=== PATIENT | female | born 1960 | race Caucasian/White ===

== ENCOUNTER → 2020-12-13 | Outpatient (CLI) | payer OTHER ==
[~2020-12-13] MED LIST: ALENDRONATE SOD70 MG PO; LEVOTHYROXINE25 MCG PO; MULTI VITAMIN1 EACH PO; PREDNISONE 10 M10 M1 PO; ROSUVASTATIN CA10 MG PO; TIZANIDINE HCL4 M2 PO
== END ==
LOC: LAB 11:38
PROVIDERS: ATTEND Orthopaedic Surgery
DX: Z01.812 Encounter for preprocedural laboratory examination (principal); Z20.822 Contact with and (suspected) exposure to COVID-19

== ENCOUNTER → 2020-12-13 | Day surgery (SDC) | payer OTHER ==
[~2020-12-13] VITALS: Ht 160 cm; Wt 86.2 kg
[2020-12-13 09:42] LABS: URINE BILIRUBIN NEGATIVE (Negative); URINE BLOOD NEGATIVE (Negative); URINE CLARITY CLEAR; URINE COLOR YELLOW; URINE GLUCOSE-RANDOM* NEGATIVE (Negative); URINE KETONES NEGATIVE (Negative); URINE NITRITE-REFLEX NEGATIVE (Negative); URINE PROTEIN (DIPSTICK) NEGATIVE (Negative); URINE SPECIFIC GRAVITY 1.015 (1.005-1.035); URINE UROBILINOGEN 0.2 E.U./dl (0.2-1.0)
[2020-12-13 09:44] LABS: URINE LEUKOCYTES-REFLEX 1+ (Negative)
[2020-12-13 09:51] LABS: HEMATOCRIT 44.4 % (37.0-47.0); HEMOGLOBIN 14.6 gm/dL (12.0-15.0); MCH 31.6 pg (26.0-34.0); MCHC 32.9 g/dL (28.0-37.0); MCV 96.3 fL (80.0-100.0); RBC 4.61 mil/uL (4.20-5.00); RDW 13.2 % (10.5-14.5); WBC 5.7 thou/uL (4.0-11.0)
[2020-12-13 09:56] LABS: ALBUMIN 3.5 g/dL (3.4-5.0); CALCIUM 8.7 mg/dL (8.5-10.1); CREATININE 0.9 mg/dL (0.6-1.0); POTASSIUM 4.4 mmol/L (3.5-5.1)
[2020-12-13 10:01] LABS: PROTIME 10.7 Seconds (9.3-11.4)
[2020-12-13 10:10] LABS: SQUAMOUS >10 Many /LPF (0-3)
[2020-12-13 10:11] LABS: BACTERIA-REFLEX 1-9 Few /HPF (None Seen); CASTS None Seen /LPF (None Seen); CRYSTALS None Seen /LPF (None Seen); MUCUS 0-3 Light strn/LPF (None Seen); URINE RBC 0-2 Rare /HPF (0-2)
[2020-12-19 07:11] VITALS: BP 135/72
== END | disposition home or self-care (01) ==
LOC: PAC 06:09 → OR 12-19 06:09 → TBA 12-19 06:10 → OR 12-19 06:10 → EDSTATUS 12-19 08:28 → OR 12-19 09:07
PROVIDERS: ATTEND Orthopaedic Surgery
DX: Z01.812 Encounter for preprocedural laboratory examination (principal); M16.12 Unilateral primary osteoarthritis, left hip; E78.5 Hyperlipidemia, unspecified; E03.9 Hypothyroidism, unspecified; Z96.641 Presence of right artificial hip joint; Z90.49 Acquired absence of other specified parts of digestive tract; Z98.84 Bariatric surgery status; Z98.890 Other specified postprocedural states; Z79.899 Other long term (current) drug therapy

== ENCOUNTER 2020-12-22 07:20 | Inpatient (IN) | payer OTHER ==
[~2020-12-22] VITALS: Ht 160 cm; Wt 88.5 kg
[2020-12-22 08:05] VITALS: BP 127/58
[2020-12-22 12:24] VITALS: BP 108/52
[2020-12-22 13:42] VITALS: BP 113/62
--- NOTE | 2020-12-22 14:53 | NUR ---
ASSUMED PT CARE UPON TRANSFER TO UNIT AROUND 1230. PATIENT A&OX4, ABLE TO CALL WHEN NEEDED. DRESSING TO LEFT HIP C/D/I. ALVIN HOSE ON BILATERALLY. ICE PACK TO LEFT HIP. PATIENT REPORTS PAIN IN LEFT HIP, GIVEN PAIN MEDS PER EMAR. IV TO RIGHT WRIST WITH FLUIDS INFUSING. TOLERATING LIQUIDS WELL. REPORTING NO NAUSEA, TINGLING, OR NUMBNESS AT THIS TIME. BOYFRIEND AT BEDSIDE.
--- NOTE | 2020-12-22 14:56 | NUR ---
assessment: CM REVIEWED CHART AND SPOKE WITH PATIENT. PT IS S/P L SITA. PT REPORTS THAT SHE LIVES IN A HOUSE WITH HER BOYFRIEND. PT REPORTS HAVING TWO STEPS TO ENTER THE HOME WITH A HANDRAIL AND NO STEPS SHE HAS TO USE ONCE INSIDE. PT REPORTS THEY DO HAVE A BASEMENT BUT THEY DO NOT UTILIZE IT. PT REPORTS THAT SHE HAS A WALKER AT HOME. PT REPORTS THEY HAVE A BUILT IN SHOWER BENCH. PT STATES SHE HAD HH YEARS AGO BUT UNSURE THE AGENCY. PT REPORTS SHE HAS OUTPATIENT THERAPY ARRANGED ALREADY AT [facility] [place] TO BEGIN ON SATURDAY. CM DISCUSSED ROLE. PT DOES NOT ANTICIPATE HAVING ANY NEEDS FROM CM. CM WILL CONTINUE TO FOLLOW TO ASSIST NEEDED.
[2020-12-22 19:48] VITALS: BP 101/59
--- NOTE | 2020-12-22 22:50 | NUR ---
ASESSED AT START OF SHIFT, PT A&OX4 RESTING IN BED. EVENING MEDS GIVEN AND PT AURA IT WELL. IV INTACT AND FLUIDS INFUSING. ICE PACK PLACED ON LEFT HIP. PT VOIDS VIA BED VENEGAS. DENIES NAUSEA ON ASSESSMENT. SOHEILA DRESSING, SCD'S ON LOWER EXT. FALL PREC IN PLACE AND CALL LIGHT AT REACH WILL CONT TO MONITOR.
[2020-12-23 01:30] VITALS: BP 74/40
[2020-12-23 04:20] VITALS: BP 87/45
[2020-12-23 04:37] LABS: HEMATOCRIT 30.3 % (37.0-47.0); HEMOGLOBIN 10.2 gm/dL (12.0-15.0); MCH 32.4 pg (26.0-34.0); MCHC 33.5 g/dL (28.0-37.0); MCV 96.5 fL (80.0-100.0); RBC 3.14 mil/uL (4.20-5.00); RDW 13.3 % (10.5-14.5); WBC 9.2 thou/uL (4.0-11.0)
[2020-12-23 08:15] VITALS: BP 86/42
[2020-12-23 11:58] LABS: CALCIUM 7.6 mg/dL (8.5-10.1); CREATININE 1.5 mg/dL (0.6-1.0); MAGNESIUM 1.7 mg/dL (1.8-2.4); POTASSIUM 4.7 mmol/L (3.5-5.1)
--- NOTE | 2020-12-23 13:33 | NUR ---
ON-GOING ASSESSMENT: CM REVIEWED CHART. PTS BLOOD PRESSURE WAS RUNNING LOW THIS AM AND PT WAS FEELING NAUSEATED. PT WILL CONTINUE TO WORK WITH PT AND IF BP NORMALIZES POSSIBLE DISCHARGE HOME. PT ALREADY HAS WALKER AT HOME AND OUTPATIENT THERAPY ARRANGED. PT WILL DISCHARGE HOME NO NEEDS ONCE STABLE.
[2020-12-23 15:40] VITALS: BP 104/53
--- NOTE | 2020-12-23 17:18 | NUR ---
Assumed pt care this am. Pt is alert & oriented x4. Pt has IV site on R wrist. Pt c/o dizziness and given medication. Pt has scd, jeana porter, maria eugenia dressing and uses bedside commode and walker for transfer and ambulation. Inform Dr Arvizu pt has low BP. Given IV bolus and still low BP. Given IV fluid running at 150ml/hr as ordered. Pt boyfriend at the bedside. Pt on the bed sleeping, bed on the lowest position, call light within reach. Will continue to monitor pt. Follow POC.
[2020-12-23 20:55] VITALS: BP 104/54
[2020-12-23 21:18] VITALS: BP 104/54
[2020-12-24] VITALS (7 sets, daily range): BP systolic 116–152; BP diastolic 56–104
--- NOTE | 2020-12-24 02:43 | NUR ---
ASSUMED CARE OF PT AT 1900. PT IS A/O X4 AND IS UP SBA TO THE BSC WITH GB AND WALKER. ROOM AIR. ELEVATED TEMPERATURE. PROVIDED PT TYLENOL AND ENCOURAGED PT TO USE INCENTIVE SPIROMTRY MORE OFTEN. CURRENT GOAL IS 2000 AND PT IS ABLE TO MAKE IT TO 1500. PRN TYLENOL REASSESSMENT SHOWED TEMPERATURE IS LOWERING. DRSG TO LEFT HIP IS C/D/I. ICE PACK IN PLACE FOR COLD THERAPY. NO C/O OF NAUSEA OR DIZZINESS THIS SHIFT. BP WAS LOW BUT ELEVATED SOME SINCE PREVIOUS SHIFT. CONTINUES ON NS AT 150ML/HR. FALL PRECAUTIONS IN PLACE, CALL LIGHT IS WITHIN REACH. PT CALLS OUT APPROPRIATELY. WILL CONTINUE TO MONITOR.
[2020-12-24 05:17] LABS: ABSOLUTE NEUTROPHILS 4.8 thou/uL (1.4-8.2); BASOPHILS 0.7 % (0.0-2.0); EOSINOPHILS 1.5 % (0.0-3.0); HEMATOCRIT 26.2 % (37.0-47.0); HEMOGLOBIN 8.9 gm/dL (12.0-15.0); LYMPHOCYTES 23.7 % (24.0-44.0); MCH 32.4 pg (26.0-34.0); MCHC 33.8 g/dL (28.0-37.0); MONOCYTES 7.5 % (1.0-8.0); PLATELET COUNT 165 thou/uL (150-400); POLYS 66.6 % (36.0-66.0); RBC 2.73 mil/uL (4.20-5.00); RDW 13.3 % (10.5-14.5); WBC 7.2 thou/uL (4.0-11.0)
[2020-12-24 05:32] LABS: CALCIUM 7.1 mg/dL (8.5-10.1); MAGNESIUM 1.9 mg/dL (1.8-2.4); POTASSIUM 4.1 mmol/L (3.5-5.1)
[2020-12-24 07:14] LABS: URINE BILIRUBIN NEGATIVE (Negative); URINE BLOOD NEGATIVE (Negative); URINE CLARITY CLEAR; URINE COLOR YELLOW; URINE GLUCOSE-RANDOM* NEGATIVE (Negative); URINE KETONES NEGATIVE (Negative); URINE NITRITE-REFLEX NEGATIVE (Negative); URINE PROTEIN (DIPSTICK) NEGATIVE (Negative); URINE UROBILINOGEN 0.2 E.U./dl (0.2-1.0)
[2020-12-24 07:23] LABS: URINE LEUKOCYTES-REFLEX 1+ (Negative)
[2020-12-24 09:47] LABS: CASTS None Seen /LPF (None Seen); SQUAMOUS >10 Many /LPF (0-3)
[2020-12-24 09:48] LABS: BACTERIA-REFLEX None Seen /HPF (None Seen); CRYSTALS None Seen /LPF (None Seen); URINE RBC None Seen /HPF (0-2); URINE WBC-REFLEX 6-15 Few /HPF (0-5)
[2020-12-24 10:49] LABS: ALBUMIN 2.3 g/dL (3.4-5.0); DIRECT BILIRUBIN < 0.1 mg/dL (<0.1-0.2); SGOT 26 U/L (15-37); SGPT 18 U/L (30-65); TOTAL BILIRUBIN 0.4 mg/dL (0.2-1.0)
--- NOTE | 2020-12-24 18:18 | NUR ---
ASSUMED PT CAREA ROUND 0830. PT ALERT X ORIENTED X4. ON ROOM AIR. VSS. STRAIGHT CATH URINE COLLECTED AND URINE SENT FOR UA. PAIN PARTIALLY CONTROLLED BY PAIN MEDS. FALL PRECAUTION IN PLACE. WILL CONT TO MONITOR.
[2020-12-25 03:55] LABS: CALCIUM 7.5 mg/dL (8.5-10.1); CREATININE 0.9 mg/dL (0.6-1.0); MAGNESIUM 2.1 mg/dL (1.8-2.4); PHOSPHORUS 2.2 mg/dL (2.5-4.9); POTASSIUM 3.5 mmol/L (3.5-5.1)
[2020-12-25 04:22] VITALS: BP 100/52
[2020-12-25 04:29] LABS: ABSOLUTE NEUTROPHILS 4.6 thou/uL (1.4-8.2); BASOPHILS 0.9 % (0.0-2.0); EOSINOPHILS 3.6 % (0.0-3.0); HEMATOCRIT 25.4 % (37.0-47.0); HEMOGLOBIN 8.5 gm/dL (12.0-15.0); LYMPHOCYTES 25.1 % (24.0-44.0); MCH 32.3 pg (26.0-34.0); MCHC 33.4 g/dL (28.0-37.0); MCV 96.7 fL (80.0-100.0); MONOCYTES 7.3 % (1.0-8.0); PLATELET COUNT 155 thou/uL (150-400); POLYS 63.1 % (36.0-66.0); RBC 2.63 mil/uL (4.20-5.00); RDW 13.1 % (10.5-14.5); WBC 7.2 thou/uL (4.0-11.0)
--- NOTE | 2020-12-25 04:41 | NUR ---
Assumed pt care at 1900. A/0X4,VSS.Up with AX1,RW/GB to [facility] [place] [facility]. C/o pain to left hip 03/09,medicated per EMAR,ice pack provided and pt reports relief when resting. SOHEILA dsg in place on left hip C/D/I,CMS intact. Continent of urine no bowels this shift but passing flatus. Low grade temp,medicated with Tylenol,will continue to monitor pt. New IV inserted on RAC d/t the other one leaking w/o any problems. Pt resting quietly at this time.Fall precautions in place,calls approp for help.
[2020-12-25 04:42] LABS: URINE BILIRUBIN NEGATIVE (Negative); URINE BLOOD NEGATIVE (Negative); URINE CLARITY CLEAR; URINE COLOR YELLOW; URINE GLUCOSE-RANDOM* NEGATIVE (Negative); URINE KETONES NEGATIVE (Negative); URINE LEUKOCYTES-REFLEX NEGATIVE (Negative); URINE NITRITE-REFLEX NEGATIVE (Negative); URINE PROTEIN (DIPSTICK) NEGATIVE (Negative); URINE UROBILINOGEN 0.2 E.U./dl (0.2-1.0)
[2020-12-25 09:55] VITALS: BP 99/43
--- NOTE | 2020-12-25 12:04 | NUR ---
ASSUMED PT CARE THIS AM. PT IS ALERT & ORIENTED X4. PT HAS IV SITE ON R AC SALINE LOCKED. PT NO C/O OF NAUSEA, VOMITING AND PAIN THIS AM. INFORM DR MONCADA PT BP IS STILL LOW BUT ASYMPTOMATIC. PT IS CURRENTLY SITTING ON THE CHAIR. PT USES BEDSIDE COMMODE AND BEDPAN. PT IS ON ROOOM AIR. PT HAS ALVIN HOSE, SOHEILA DRESSING ON L HIP AND ICE PACK. WILL CONTINUE TO MONITOR PT. FOLLOW POC.
[2020-12-25 13:55] VITALS: BP 118/54
[2020-12-25 16:38] VITALS: BP 128/63
[2020-12-25 21:31] VITALS: BP 116/63
--- NOTE | 2020-12-26 00:49 | NUR ---
PT AOX4. PT DENIES PAIN AND SOB WHILE ON ROOM AIR. PT HAS PRN PO NORCO Q4HR AND PRN APAP Q4HR AVAILABLE. PT TOLERATING PO INTAKE OF FLUIDS AND REGULAR DIET WITHOUT ISSUE. PT WITHOUT NAUSEA OR EMESIS. PT AMBULATING WITH WALKER AND STANDBY ASSIST TO BEDSIDE COMMODE, RESTING IN BED OTHERWISE. FREQUENT REPOSITIONING ENCOURAGED, PT NOTED TO SHIFT INDEPENDENTLY WHILE IN BED. SENSATION INTACT, CAPILLARY REFILL LESS THAN 3SEC IN ALL EXTREMITIES. PT ENCOURAGED TO NOTIFY STAFF FOR ALL NEEDS, CALL LIGHT WITHIN REACH, BED ALARM ON, BED LOCKED IN LOWEST POSITION, FREQUENT MONITORING WILL CONTINUE.
[2020-12-26 07:10] VITALS: BP 114/66
--- NOTE | 2020-12-26 10:47 | NUR ---
ASSUMED PT CARE AROUND 0700. PT ALERT X ORIENTEDX 4. ON ROOM AIR.VSS. IV RT AC SALINE LOCKED. PAIN CONTROLLED BY PAIN MEDICINE. NO N/V. STAND BY ASST TO BEDSIDE COMMODE. PTOT WORKED WELL WITH PT. PT GOOD TO GO ON PT'S VIEWPOINT. PT EATING AND DRINKING WELL. SLIGHT SOB ON EXERTION. PT SITTING ON THE CHAIR. PROBABLY DISCHARGING TODAY. FALL PRECAUTION IN PLACE. WILL CONTINUE TO MONITOR.
[2020-12-26] MEDS ORDERED: DOXYCYCLINE HYC50 MG PO (11:46)
--- NOTE | 2020-12-26 14:47 | NUR ---
on-going assessment: CM REVIEWED CHART. PT HAD HYPOTENSION OVER THE WEEKEND AND SOME DIZZINESS. CM SPOKE WITH ATTENDING TODAY AND PT IS MEDICALLY STABLE FOR DISCHARGE. PT HAS HER WALKER AT HOME AND OUTPATIENT THERAPY ALREADY ARRANGED. PT REPORTS NO FURTHER NEEDS FROM CM. PHYSICAL THERAPY CLEARED PT FOR HOME.
--- NOTE | 2020-12-27 14:06 | O ---
[facility] [place] [address] OPERATIVE REPORT Name: ESAU WAYNE Room #: 434-P [facility] M.R.#: [id number] Admission: 12/24/20 Attend Phys: Cristian Bryant MD Discharge: 12/26/20 Date of : 58 Report #: [id number] THIS REPORT FOR: cc: FAM - Family physician unknown FAM - Family physician unknown Cristian Bryant MD ~ DATE OF SERVICE: 12/22/2020 PREOPERATIVE DIAGNOSIS: Left hip osteoarthritis. POSTOPERATIVE DIAGNOSIS: Left hip osteoarthritis. PROCEDURE: Left total hip arthroplasty. SURGEON: Cristian Bryant MD. TEACHER DANCING: Nury Arvizu PA-C. INDICATIONS FOR TEACHER DANCING: Throughout the case, extensive retraction and manipulation of the hip including dislocation and reduction was required. This was afforded to me by my legislative assistant. ANESTHESIA: LMA. IMPLANTS: Simmons [employer] Nephew size 52 R3 acetabular cup with 3 acetabular screws, a size 14 high offset Synergy press-fit stem, a size 32 -3 Oxinium head and a single Accord cable for prophylactic femur fixation. ESTIMATED BLOOD LOSS: 100 mL. COMPLICATIONS: None. SPECIMENS: None. CONDITION UPON LEAVING THE OPERATING ROOM: Stable. INDICATIONS FOR PROCEDURE: The patient is a 60-year-old female with left hip osteoarthritis. She had failed conservative measures for this and after discussion with her, she elected for left total hip arthroplasty. DESCRIPTION OF PROCEDURE: Risks, benefits, alternatives, complications were discussed in detail with the patient including but not limited to risk of anesthesia, risk of damage to nerves, arteries, blood vessels, risk for infection, bleeding, risk for continued hip pain, leg length discrepancy, instability and need for reoperation. Informed consent was obtained from the [facility] [place] [address] OPERATIVE REPORT Name: ESAU WAYNE Room #: 434-P [facility].#: [id number] Admission: 12/24/20 Attend Phys: Cristian Bryant MD Discharge: 12/26/20 Date of : 58 Report #: [id number] patient. Left hip was appropriately marked in the preoperative holding area. IV clindamycin was given for preoperative antibiotics. She was brought to the operating room and placed in supine position on the operating room table. LMA anesthesia was induced without complication. She was then placed in the right lateral decubitus position with the left hip uppermost. Left hip and lower extremity were prepped and draped in normal sterile fashion. Timeout was performed properly identifying the patient and procedure as well as the instrumentation. All in the operating room were in agreement. Standard posterior approach to the hip was made with 10 blade through the skin. Dissection was taken down sharply to the fascia with Bovie cautery. Gama elevator was used to clean the fascia. Fresh 10 blade was used to make a fascial incision. This was taken proximally and distally with curved Hutchinson scissor. Charnley retractor was placed. Trochanteric bursa was taken down with Bovie cautery. Piriformis tendon was identified, tagged and taken down with Bovie cautery. Short external rotators were also taken down with Bovie cautery. Capsulotomy was made and capsule ends were tagged for later repair. Hip was dislocated and there was extensive osteoarthritic change in femoral head. Femoral neck cut was made 1 cm proximal to lesser trochanter based on preoperative templating and femoral head was removed. Deep acetabular retractors were placed. Labrum was removed sharply. Pulvinar was removed with Bovie cautery. Acetabulum was then sequentially reamed up to a size 52, at which point, there was excellent bleeding cancellous bone. A size 51 trial cup was placed, found to have a good fit. Final size 52 R3 acetabular cup was placed and seated. We did place 3 backup acetabular screws for backup fixation. Polyethylene liner for a 36 head was placed. After this, attention was turned to the femur. This was reamed and broached up to a size 14, at which point, the size 14 broach was stable, was trialed with a high offset neck in a 36, -3 head. Hip was reduced, taken through range of motion, found to be stable, found to have equal leg lengths. Hip was dislocated and broach was removed. A single Accord cable was placed around the proximal femur just proximal to lesser trochanter for prophylactic fixation. A final size 14 high offset Synergy press-fit stem was placed. This did not seat quite as far as the broach and so we trialled a 36, -3 head. Hip was reduced, taken through range of motion, found to be stable, found to have equal leg lengths. Hip was dislocated, trial head was removed. A final size 36, -3 Oxinium head was placed. Hip was reduced, taken through range of motion, found to be stable, found to have equal leg lengths. The wound was thoroughly irrigated with normal saline. A periarticular injection consisting of morphine, ropivacaine, epinephrine, Toradol was placed around the hip joint capsule. A gram of vancomycin was placed deep in the joint capsule and piriformis were repaired with 0 FiberWire. Fascia was closed with 0 Vicryl, skin was closed with 2-0 Vicryl, skin staple [address] [address] OPERATIVE REPORT Name: ESAU WAYNE Room #: 434-P [facility] ..#: [id number] Admission: 12/24/20 Attend Phys: Cristian Bryant MD Discharge: 12/26/20 Date of : 58 Report #: [id number] and a SOHEILA dressing was applied. The patient tolerated this procedure well and went to the recovery room under care of anesthesia postoperatively. <ELECTRONICALLY SIGNED> By: Cristian Bryant MD 12/27/20 1406 1143 1213 Cristian Bryant MD /nt
== END 2020-12-26 13:44 | disposition home or self-care (01) | DRG 469 ==
LOC: TBA 07:20 → OR 07:20 → TBA 08:00 → OR 11:40 → 4S 12:26 → OR 14:10 → 4S 12-24 11:00
PROVIDERS: Internal Medicine; Nurse Practitioner; ADMIT Orthopaedic Surgery; ATTEND Orthopaedic Surgery
PROC: 0SRB06A Replacement of Left Hip Joint with Oxidized Zirconium on Polyethylene Synthetic Substitute, Uncemented, Open Approach (ICD-10-PCS; principal; 2020-12-22)
DX: M16.12 Unilateral primary osteoarthritis, left hip (principal); N17.0 Acute kidney failure with tubular necrosis; E43 Unspecified severe protein-calorie malnutrition; E78.5 Hyperlipidemia, unspecified; E03.9 Hypothyroidism, unspecified; Z96.641 Presence of right artificial hip joint; E83.51 Hypocalcemia; I95.9 Hypotension, unspecified; R50.82 Postprocedural fever; D64.9 Anemia, unspecified; Z88.2 Allergy status to sulfonamides; Z88.8 Allergy status to other drugs, medicaments and biological substances; Z79.82 Long term (current) use of aspirin; Z79.899 Other long term (current) drug therapy; Z90.710 Acquired absence of both cervix and uterus; Z90.49 Acquired absence of other specified parts of digestive tract
CPT/HCPCS: 10102; 50010; 50101; 50382; 50414; 51412; 53000; 53078; 53368; 56524; 56528; 56530; 57095; 57103; 57496; 62110; 62900; 70005

== ENCOUNTER → 2021-07-10 | Outpatient (CLI) | payer OTHER ==
[~2021-07-10] MED LIST changes: +DOXYCYCLINE HYC50 MG PO; +TRAMADOL 50 MG50 MG PO; +[UNRECOGNIZED DRUG - OTHER] PO
== END ==
LOC: LAB 08:23
PROVIDERS: Student in an Organized Health Care Education/Training Program; ATTEND Orthopaedic Surgery Sports Medicine
DX: Z01.812 Encounter for preprocedural laboratory examination (principal); Z20.822 Contact with and (suspected) exposure to COVID-19

== ENCOUNTER 2021-07-12 06:26 | Day surgery (SDC) | payer OTHER ==
[~2021-07-12] VITALS: Ht 160 cm; Wt 81.6 kg
--- NOTE | ~2021-07-12 | O ---
[facility] [place] [address] OPERATIVE REPORT Name: ESAU WAYNE Room #: 150-2 [facility]..#: [id number] Admission: 07/12/21 Attend Phys: Mau Pina MD Discharge: Date of : 58 Report #: [id number] THIS REPORT FOR: cc: SCOTT NUGENT Physician not on staff Mau Pina MD ~ DATE OF SERVICE: 07/12/2021 SERVICE: Orthopedics. FACILITY: [facility]. SURGEON: Mau Pina MD 3D SPECIALIST: Brooke Brooks NP PREOPERATIVE DIAGNOSES: 1. Left hip pain. 2. Left hip iliopsoas tendinitis with iliopsoas tendon impingement on the acetabular component. 3. Status post left total hip arthroplasty. POSTOPERATIVE DIAGNOSES: 1. Left hip pain. 2. Left hip iliopsoas tendinitis with iliopsoas tendon impingement on the acetabular component. 3. Status post left total hip arthroplasty. PROCEDURES: Left hip arthroscopy with debridement, synovectomy and iliopsoas tendon lengthening. COMPLICATIONS: None. DRAINS: None. SPECIMENS: Synovial biopsy. FINDINGS: 1. Thickened yellow inflammatory fluid present within the iliopsoas tendon sheath and fraying of the deep fibers of the tendon over the anterior aspect of the cup. 2. No signs of deep space infection. 3. No signs of loosening or malposition of the components. HISTORY OF PRESENT ILLNESS: The patient is a 60-year-old female who is status post bilateral total hip arthroplasty, the left hip was then more recently and [facility] [address] [place] [address] OPERATIVE REPORT Name: ESAU WAYNE Room #: 150-2 [facility]..#: [id number] Admission: 07/12/21 Attend Phys: Mau Pina MD Discharge: Date of : 58 Report #: [id number] she has had continued pain with hip flexion activities attributable most likely to iliopsoas tendinitis and iliopsoas tendon impingement on the acetabular component. She has a history of dysplasia, which puts her at risk of this particular complication. She had an iliopsoas tendon sheath injection and had good pain relief for several weeks, but unfortunately, the pain recurred. She failed conservative measures including physical therapy, rest and activity modification as well as oral medicines and injection and therefore wished to move forward with definitive surgical treatment. Risks, benefits, alternatives and indications for surgery discussed with her in detail. Risks include but not limited to pain, bleeding, infection, injuring nerves or blood vessels, persistent pain despite surgical intervention, need for further surgery up to and including revision arthroplasty as well as complications related to anesthesia. Despite the risks, she wished to proceed. PROCEDURE IN DETAIL: After left lower extremity was correctly identified in the preoperative holding area as the operative extremity, the patient was taken to the operating room. General anesthesia was induced without complications. She was padded appropriately. Prophylactic antibiotics were administered in appropriate time. Left lower extremity was then prepped and draped in standard sterile fashion. Timeout procedure performed. Under fluoroscopy without any traction, triangulation was used to establish 2 portals at the base of the femoral head component, accessing the anterior aspect of the neck of the femoral component. The anterolateral portal was established first in standard fashion and then anteromedial portal and then the anterior capsule and fibrosis was resected with a shaver. The neck was followed to the femoral head where an Oxinium femoral head was visualized and appeared to be intact and properly functioning. There was no evidence of deep space infection. There was no effusion present. The debridement was carried out up to the interface with the poly liner and this was well seated within the acetabular component. There was some prominence of the acetabular component relative to the anterior acetabular bone as expected was for bony anatomy. I then continued with the dissection medially, visualized the iliopsoas tendon where she was noted to essentially have three bands to her tendon, the two more superficially looked healthy and was smaller, but the deeper one was the largest and laid right over the anterior aspect of the cuff and had some fraying on the undersurface. When the capsule and the synovial sheath was opened in this area, a significant amount of thick yellow gelatinous fluid, most consistent with what is seen with a ganglion cyst, egressed from the sheath and was debrided with the shaver. I then proceeded with iliopsoas tendon lengthening, transecting the tendinous portion to maintain the muscular portion of the iliopsoas muscle at the level of the prosthesis. The shaver was then used to resect the tendon stumps proximally and distally, and the muscle was visualized to lay properly in this area. The polyethylene liner was probed and found to be stable. The synovitis that was present between the acetabular component in the iliopsoas [facility] [address] [place] [address] OPERATIVE REPORT Name: ESAU WAYNE Room #: 150-2 [facility] M.R.#: [id number] Admission: 07/12/21 Attend Phys: Mau Pina MD Discharge: Date of : 58 Report #: [id number] tendon was biopsied and sent for permanent pathology. The arthroscopic effusion was drained. Instruments were removed. Portal sites were closed. Sterile dressing was applied. The patient was awakened from anesthesia and taken to recovery room in stable condition. No complications. All counts were reported correct. By: 1100 1136 Mau Pina MD /nt
[2021-07-12 07:01] VITALS: BP 123/67
[2021-07-12 10:06] VITALS: BP 123/67
--- NOTE | 2021-07-14 07:10 | EKG ---
[place] [address] [facility] [place] [address] ELECTROCARDIOGRAM REPORT Name: ESAU WAYNE Room #: DEP [facility]#: [id number] Admission: 07/12/21 Attend Phys: Mau Pina MD Discharge: 07/12/21 Date of : 58 Report #: [id number] [facility] Test Date: 2021-07-12 Test Time: 09:25:43 Pat Name: ESAU WAYNE Department: Room: Gender: F [employer]: : 1960 Requested By: Mau Pina Order Number: [id number] : Steven Schaffer Measurements Intervals [place] Rate: 83 P: 50 VA: 176 QRS: 22 QRSD: 114 T: 91 QT: 402 QTc: 473 Interpretive Statements Sinus rhythm Incomplete left bundle branch block Anterior Q waves, possibly due to ILBBB No previous ECG available for comparison Electronically Signed On 07-14-2021 7:10:32 CDT by Steven Schaffer [email or web address] <ELECTRONICALLY SIGNED> By: Steven Schaffer MD, [facility] 07/14/21 0710 924 4 Steven Schaffer MD, FACC /EPI
== END 2021-07-12 14:45 | disposition home or self-care (01) ==
LOC: OR → TBA 06:29 → OR 08:26
PROVIDERS: ATTEND Orthopaedic Surgery Sports Medicine
DX: M25.552 Pain in left hip (principal); M76.12 Psoas tendinitis, left hip; M25.852 Other specified joint disorders, left hip; E78.5 Hyperlipidemia, unspecified; E03.9 Hypothyroidism, unspecified; Z98.890 Other specified postprocedural states; Z79.899 Other long term (current) drug therapy; Z90.710 Acquired absence of both cervix and uterus; Z90.49 Acquired absence of other specified parts of digestive tract; Z96.642 Presence of left artificial hip joint
CPT/HCPCS: 50010; 50101; 50386; 51320; 51538; 52001; 52282; 52304; 52313; 56524; 56527; 57092; 57103; 58557; 58558; 58561; 62110; 62900; 70005

== ENCOUNTER → 2021-07-20 | Outpatient (CLI) | payer OTHER | LOC: RAD 14:10 | PROVIDERS: ATTEND Internal Medicine | DX: Z13.6 Encounter for screening for cardiovascular disorders (principal) ==

== ENCOUNTER → 2021-07-20 | Outpatient (CLI) | payer OTHER | LOC: SJCVC 13:37 | PROVIDERS: ATTEND Internal Medicine | DX: R94.31 Abnormal electrocardiogram [ECG] [EKG] (principal); E78.00 Pure hypercholesterolemia, unspecified; Z13.220 Encounter for screening for lipoid disorders; Z88.2 Allergy status to sulfonamides; Z88.8 Allergy status to other drugs, medicaments and biological substances; Z88.0 Allergy status to penicillin ==

== ENCOUNTER → 2021-07-24 | Outpatient (CLI) | payer OTHER | LOC: SJCVCIMAG | PROVIDERS: ATTEND Internal Medicine | DX: R94.31 Abnormal electrocardiogram [ECG] [EKG] (principal); Z88.2 Allergy status to sulfonamides; Z88.1 Allergy status to other antibiotic agents; Z79.899 Other long term (current) drug therapy ==